=== PATIENT | female | born 1940 | race Two or more races ===

== ENCOUNTER 2018-07-19 14:27 | Emergency (ER) | payer OTHER ==
[~2018-07-19] VITALS: Ht 160 cm; Wt 63.5 kg
[~2018-07-19 14:27] MED LIST: ARICEPT23 MG PO; CARVEDILOL6.25 MG PO; ESCITALOPRAM OX10 MG PO; EXFORGE HCT 101 EAC2 PO; HUMALOG100 U/ML SQ; JANUMET 50-1,1 UDTAB PO; LANTUS100 U/ML SUBCUTANEO; NEXIUM40 MG/PACK PO; PLAVIX75 MG PO; SYNTHROID50 MCG PO; TRICOR145 MG PO; ZOCOR40 MG PO
[2018-07-19] MEDS ORDERED: RIVASTIGMINE6 MG (14:46)
== END 2018-07-19 18:21 | disposition home or self-care (01) ==
LOC: ER 14:27 → CPU-OBS 15:03 → ER 18:21
DX: M94.0 Chondrocostal junction syndrome [Tietze] (principal)

== ENCOUNTER 2018-08-13 12:51 | Emergency (ER) | payer OTHER ==
[~2018-08-13] VITALS: Ht 157.5 cm; Wt 65.8 kg
[~2018-08-13 12:51] MED LIST changes: +RIVASTIGMINE6 MG
== END 2018-08-13 18:33 | disposition home or self-care (01) ==
LOC: ER 12:51
DX: S40.012A Contusion of left shoulder, initial encounter (principal); G40.802 Other epilepsy, not intractable, without status epilepticus; R55 Syncope and collapse; W18.09XA Striking against other object with subsequent fall, initial encounter; Y93.89 Activity, other specified; Y92.89 Other specified places as the place of occurrence of the external cause; Y99.8 Other external cause status

== ENCOUNTER 2021-10-22 11:55 | Inpatient (IN) | payer OTHER ==
[~2021-10-22] VITALS: Ht 160 cm; Wt 59.0 kg
[2021-10-22] MEDS ORDERED: GABAPENTIN400 MG PO (12:09)
[2021-10-22] MEDS ORDERED: ACCU-CHEK FAST1 EACH MC (12:10)
[2021-10-22] MEDS ORDERED: IRBESARTAN150 MG PO (12:10)
[2021-10-22] MEDS ORDERED: RIVASTIGMINE6 MG PO (12:11)
[2021-10-22] MEDS ORDERED: PAXLOVID CO-PA1 EAC1 PO (12:11)
[2021-10-22] MEDS ORDERED: JANUMET 50-1,01 EACH PO (12:11)
[2021-10-22] MEDS ORDERED: TRAZODONE HCL150 MG PO (12:12)
== END 2021-10-30 06:35 | disposition expired | DRG 177 ==
LOC: ER 11:55 → ICU-2 18:15 → ICU 10-26 20:27
PROVIDERS: ADMIT Internal Medicine; ATTEND Internal Medicine
PROC: 8E0ZXY6 Isolation (ICD-10-PCS; principal; 2021-10-22)
PROC: 5A0945A Assistance with Respiratory Ventilation, 24-96 Consecutive Hours, High Flow/Velocity Cannula (ICD-10-PCS; 2021-10-22)
PROC: XW033E5 Introduction of Remdesivir Anti-infective into Peripheral Vein, Percutaneous Approach, New Technology Group 5 (ICD-10-PCS; 2021-10-23)
PROC: 5A09357 Assistance with Respiratory Ventilation, Less than 24 Consecutive Hours, Continuous Positive Airway Pressure (ICD-10-PCS; 2021-10-29)
DX: U07.1 COVID-19 (principal); A41.9 Sepsis, unspecified organism; J12.82 Pneumonia due to coronavirus disease 2019; J69.0 Pneumonitis due to inhalation of food and vomit; J96.90 Respiratory failure, unspecified, unspecified whether with hypoxia or hypercapnia; R65.21 Severe sepsis with septic shock; N39.0 Urinary tract infection, site not specified; D61.818 Other pancytopenia; R64 Cachexia; I69.351 Hemiplegia and hemiparesis following cerebral infarction affecting right dominant side; F02.81 Dementia in other diseases classified elsewhere, unspecified severity, with behavioral disturbance; D63.8 Anemia in other chronic diseases classified elsewhere; R09.02 Hypoxemia; G30.9 Alzheimer's disease, unspecified; I10 Essential (primary) hypertension; E03.8 Other specified hypothyroidism; B96.20 Unspecified Escherichia coli [E. coli] as the cause of diseases classified elsewhere; Z74.01 Bed confinement status; Z28.310 Unvaccinated for COVID-19